=== PATIENT | male | born 1990 | race Caucasian/White ===

== ENCOUNTER → 2022-01-30 14:55 | Outpatient (BNVA) | payer SELFPAY | PROVIDERS: Visit Provider Family Medicine | DX: F32.9 Major depressive disorder, single episode, unspecified (principal); F42.9 Obsessive-compulsive disorder, unspecified; R06.00 Dyspnea, unspecified | CPT/HCPCS: 80053; 80061; 83721; 85025 ==

== ENCOUNTER → 2023-06-23 15:56 | Outpatient (BNVA) | payer MEDICARE, MEDICAID, SELFPAY | PROVIDERS: Referring Provider Family Medicine; Visit Provider Family Medicine | DX: T63.441A Toxic effect of venom of bees, accidental (unintentional), initial encounter (principal); F32.9 Major depressive disorder, single episode, unspecified; F42.9 Obsessive-compulsive disorder, unspecified; F17.219 Nicotine dependence, cigarettes, with unspecified nicotine-induced disorders; E83.52 Hypercalcemia | CPT/HCPCS: 80053; 80061; 82306; 83036; 84443; 85025 ==